=== PATIENT | female | born 1975 | race Caucasian/White ===

== ENCOUNTER 2018-12-10 18:46 | Emergency (ER) | payer OTHER, MEDICAID ==
[~2018-12-10] VITALS: Ht 170.2 cm; Wt 82.7 kg
[2018-12-10 18:47] VITALS: BP 122/58
[2018-12-10] MEDS ORDERED: SING10TA32 PO (19:48)
[2018-12-10] MEDS ORDERED: VITATAB11 PO (19:48)
[2018-12-10] MEDS ORDERED: NAPR250T4 PO (19:48)
[2018-12-10] MEDS ORDERED: VITA-121 PO (19:48)
[2018-12-10] MEDS ORDERED: MAGN200T PO (19:48)
[2018-12-10] MEDS ORDERED: VITA1OIL PO (19:48)
[2018-12-10] MEDS ORDERED: MIDO5TA PO (19:48)
[2018-12-10] MEDS ORDERED: CO Q10CA PO (19:48)
[2018-12-10] MEDS ORDERED: GABA-843 PO (19:48)
[2018-12-10] MEDS ORDERED: ALLE180T33 PO (19:48)
--- NOTE | 2018-12-11 06:04 | REP ---
AP PELVIS: 12/10/2018. Clinical history: Groin pain. Comparison: Right hip 12/10/2018. Findings. Pelvic ring is intact. Iliac bones and SI joints intact. Sacral ala and foramina unremarkable. There are some degenerative changes at the lumbosacral junction. Hip joint space is symmetric and preserved. Pubic rami symmetric and normal. No abnormal soft tissue calcifications. Impression: 1. Minor degenerative changes lumbosacral junction, but no disruption of the pelvic ring, fracture, SI joint or hip abnormality. Electronically Signed by Nicola Yu MD 12/11/2018 08:53 A
--- NOTE | 2018-12-11 06:05 | REP ---
RIGHT HIP: 12/10/2018. Clinical history: Right groin pain. Comparison: AP pelvis today. Findings: AP and frog-leg views show the hip joint space symmetric and preserved. There is no fracture, AVN or focal bone lesion of the bony hip. Acetabulum is unremarkable. Pubic rami, symphysis pubis and proximal femoral shaft intact. No abnormal calcifications. Visualized sacral ala and foramina intact. Impression: 1. Negative right hip series. Electronically Signed by Nicola Yu MD 12/11/2018 08:54 A
== END 2018-12-10 21:10 | disposition home or self-care (01) ==
LOC: M ED 18:46
DX: S73.101A Unspecified sprain of right hip, initial encounter (principal); S70.01XA Contusion of right hip, initial encounter; W19.XXXA Unspecified fall, initial encounter; Y92.89 Other specified places as the place of occurrence of the external cause; Y99.0 Civilian activity done for income or pay; M35.9 Systemic involvement of connective tissue, unspecified; G62.9 Polyneuropathy, unspecified; Z79.899 Other long term (current) drug therapy; Z79.1 Long term (current) use of non-steroidal anti-inflammatories (NSAID)

== ENCOUNTER → 2019-01-10 | Outpatient (CLI) | payer OTHER, MEDICAID ==
[~2019-01-10] MED LIST: ALLE180T33 PO; CO Q10CA PO; GABA-843 PO; MAGN200T PO; MIDO5TA PO; NAPR250T4 PO; SING10TA32 PO; VITA-121 PO; VITA1OIL PO; VITATAB11 PO
[2019-01-10 07:28] LABS: HEMATOCRIT 41.4 % (36.0-47.0); HEMOGLOBIN 13.4 g/dl (12.0-15.5); LYMPH % 37.4 % (24.0-44.0); MEAN CORPUSCULAR HEMOGLOBIN 29.8 pg (27.0-33.0); MEAN CORPUSCULAR HGB CONC 32.4 g/dl (32.0-36.5); MONO # 0.5 10^3/uL (0.0-0.8); MONO % 9.8 % (0.0-5.0); NEUTROPHILS # 2.8 10^3/uL (1.8-7.7); NEUTROPHILS % 52.6 % (36.0-66.0); PLATELET COUNT, AUTOMATED 352 10^3/uL (150-450); WHITE BLOOD COUNT 5.2 10^3/uL (4.0-10.0)
[2019-01-10 08:03] LABS: ALBUMIN 4.1 GM/DL (3.2-5.2); ALT/SGPT 43 U/L (12-78); BILIRUBIN,TOTAL 0.4 MG/DL (0.2-1.0); BLOOD UREA NITROGEN 18 MG/DL (7-18); CALCIUM LEVEL 9.1 MG/DL (8.5-10.1); CARBON DIOXIDE LEVEL 29 MEQ/L (21-32); CHLORIDE LEVEL 106 MEQ/L (98-107); CREATININE FOR GFR 0.76 MG/DL (0.55-1.30); FREE T4 1.23 NG/DL (0.76-1.46); GLOMERULAR FILTRATION RATE > 60.0 (>58); GLUCOSE, FASTING 88 MG/DL (70-100); POTASSIUM SERUM 4.7 MEQ/L (3.5-5.1); SODIUM LEVEL 140 MEQ/L (136-145); THYROID STIMULATING HORMONE 0.807 uIU/ML (0.358-3.740); TOTAL PROTEIN 6.3 GM/DL (6.4-8.2)
[2019-01-10 10:17] LABS: FOLATE 11.9 NG/ML; TOTAL 25(OH) VITAMIN D 27.8 NG/ML (30.0-100.0); VITAMIN B12 LEVEL 471 PG/ML
== END ==
LOC: M LAB 06:55
PROVIDERS: ATTEND Family Medicine
DX: I27.20 Pulmonary hypertension, unspecified (principal); G99.0 Autonomic neuropathy in diseases classified elsewhere

== ENCOUNTER → 2019-01-16 | Outpatient (CLI) | payer OTHER, MEDICAID ==
--- NOTE | 2019-01-21 14:52 | DEXA ---
AP SPINE L1 - L4 1.081 -0.9 -0.9 LT FEMUR TOTAL 0.902 -0.8 -0.6 LT NECK 0.833 -1.5 -0.9 RT FEMUR TOTAL 0.937 -0.6 -0.3 RT NECK 0.853 -1.3 -0.8 TOTAL BODY TOTAL OTHER COMMENTS: Normal bone densitometry of the spine. There is low bone density of the left hip. There is low bone density of the right hip. FOLLOW-UP: Recommendation for the next bone density exam: 2 years. TOMER
== END ==
LOC: M WHC 14:29
PROVIDERS: ATTEND Orthopaedic Surgery
DX: M85.88 Other specified disorders of bone density and structure, other site (principal)

== ENCOUNTER → 2019-04-28 | Outpatient (REF) | payer OTHER, MEDICAID ==
[2019-05-02 15:46] LABS: HPV HYBRID CAPTURE II Negative (Negative)
== END ==
LOC: M LAB REF 10:47
PROVIDERS: ATTEND Specialist
DX: Z12.4 Encounter for screening for malignant neoplasm of cervix (principal)

== ENCOUNTER → 2019-08-23 | Outpatient (CLI) | payer OTHER | LOC: M LAB 08:44 | PROVIDERS: ATTEND Internal Medicine Endocrinology, Diabetes & Metabolism | DX: M89.9 Disorder of bone, unspecified (principal); M94.9 Disorder of cartilage, unspecified ==

== ENCOUNTER → 2019-12-17 | Outpatient (REF) | payer OTHER | LOC: M LAB REF 16:52 | PROVIDERS: ATTEND Physician Assistant | DX: N39.0 Urinary tract infection, site not specified (principal) ==

== ENCOUNTER → 2020-01-13 | Outpatient (CLI) | payer OTHER ==
[2020-01-13 12:28] LABS: BASO # 0.1 10^3/uL (0.0-0.2); BASO % 1.7 % (0.0-1.0); EOS # 0.3 10^3/uL (0.0-0.5); EOS % 4.7 % (0.0-3.0); HEMATOCRIT 45.6 % (36.0-47.0); HEMOGLOBIN 14.8 g/dl (12.0-15.5); LYMPH # 2.1 10^3/uL (1.5-5.0); LYMPH % 35.8 % (24.0-44.0); MEAN CORPUSCULAR HEMOGLOBIN 29.5 pg (27.0-33.0); MEAN CORPUSCULAR HGB CONC 32.5 g/dl (32.0-36.5); MEAN CORPUSCULAR VOLUME 90.8 fl (80.0-96.0); MONO # 0.6 10^3/uL (0.0-0.8); NEUTROPHILS # 2.8 10^3/uL (1.5-8.5); NEUTROPHILS % 47.6 % (36.0-66.0); PLATELET COUNT, AUTOMATED 375 10^3/uL (150-450); RED BLOOD COUNT 5.02 10^6/uL (4.00-5.40); WHITE BLOOD COUNT 5.9 10^3/uL (4.0-10.0)
[2020-01-13 12:38] LABS: COLLAGEN EPINEPHRINE 132 SECONDS (74-162)
[2020-01-13 13:14] LABS: FOLATE 19.4 NG/ML
[2020-01-13 13:36] LABS: PERCENT SATURATION 17.8 % (13.2-45.0)
== END ==
LOC: M PLALAB 10:12
PROVIDERS: ATTEND Family Medicine
DX: R23.3 Spontaneous ecchymoses (principal)

== ENCOUNTER → 2020-01-20 | Outpatient (CLI) | payer OTHER ==
--- NOTE | 2020-01-20 07:57 | REP ---
Abdominal aorta ultrasound: Abdominal Aortic Measurements are as follows: Proximal one point a cm AP 2.1 cm TRV Renal Artery Level 1.4 cm AP 2.0 cm TRV Mid Aorta 1.4 cm AP 1.8 cm TRV Distal Aorta 1.2 cm AP 1.8 cm TRV R Iliac Artery 0.9 cm AP 1.2 cm TRV L Iliac Artery 0.8 cm AP 1.1. cm TRV Impression There is no abdominal aortic aneurysm. Electronically Signed by Joseph Morelos MD 01/20/2020 07:48 A
== END ==
LOC: M RAD 07:14
PROVIDERS: ATTEND Internal Medicine Cardiovascular Disease
DX: Z13.6 Encounter for screening for cardiovascular disorders (principal)

== ENCOUNTER → 2020-03-10 | Outpatient (REF) | payer OTHER ==
[2020-03-10 14:21] LABS: BASO # 0.1 10^3/uL (0.0-0.2); BASO % 1.6 % (0.0-1.0); EOS # 0.2 10^3/uL (0.0-0.5); EOS % 3.6 % (0.0-3.0); HEMATOCRIT 44.7 % (36.0-47.0); HEMOGLOBIN 14.4 g/dl (12.0-15.5); LYMPH # 1.9 10^3/uL (1.5-5.0); LYMPH % 38.3 % (24.0-44.0); MEAN CORPUSCULAR HEMOGLOBIN 29.3 pg (27.0-33.0); MEAN CORPUSCULAR HGB CONC 32.2 g/dl (32.0-36.5); MONO # 0.4 10^3/uL (0.0-0.8); MONO % 7.1 % (0.0-5.0); NEUTROPHILS # 2.5 10^3/uL (1.5-8.5); NEUTROPHILS % 49.2 % (36.0-66.0); PLATELET COUNT, AUTOMATED 385 10^3/uL (150-450); RED BLOOD COUNT 4.91 10^6/uL (4.00-5.40); WHITE BLOOD COUNT 5.1 10^3/uL (4.0-10.0)
[2020-03-10 14:25] LABS: ALBUMIN 3.9 GM/DL (3.2-5.2); ALT/SGPT 50 U/L (12-78); BILIRUBIN,TOTAL 0.5 MG/DL (0.2-1.0); BLOOD UREA NITROGEN 13 MG/DL (7-18); C REACTIVE PROTEIN QUANTITATIV < 0.30 MG/DL (0.00-0.30); CALCIUM LEVEL 9.2 MG/DL (8.5-10.1); CARBON DIOXIDE LEVEL 29 MEQ/L (21-32); CHLORIDE LEVEL 108 MEQ/L (98-107); CREATININE FOR GFR 0.79 MG/DL (0.55-1.30); FERRITIN 56 NG/ML (8-252); FREE T3 2.6 PG/ML (2.2-4.0); FREE T4 1.03 NG/DL (0.76-1.46); GLOMERULAR FILTRATION RATE > 60.0 (>58); GLUCOSE, FASTING 83 MG/DL (70-100); POTASSIUM SERUM 4.6 MEQ/L (3.5-5.1); PROGESTERONE 0.21 NG/ML; SODIUM LEVEL 141 MEQ/L (136-145); THYROID STIMULATING HORMONE 0.706 uIU/ML (0.358-3.740); TOTAL PROTEIN 6.9 GM/DL (6.4-8.2)
== END ==
LOC: M LABDRAW1 13:02
DX: I27.0 Primary pulmonary hypertension (principal); K59.00 Constipation, unspecified; N95.9 Unspecified menopausal and perimenopausal disorder; E56.9 Vitamin deficiency, unspecified; Z13.6 Encounter for screening for cardiovascular disorders

== ENCOUNTER → 2020-10-02 | Outpatient (CLI) | payer OTHER ==
[2020-10-02 13:30] LABS: CHOLESTEROL RISK RATIO 3.291 (<5)
[2020-10-04 09:54] LABS: TOTAL 25(OH) VITAMIN D 69.4 NG/ML (30.0-100.0)
== END ==
LOC: M WUC 08:13
PROVIDERS: ATTEND Family Medicine
DX: E55.9 Vitamin D deficiency, unspecified (principal); Z13.220 Encounter for screening for lipoid disorders

== ENCOUNTER → 2021-03-28 | Outpatient (REF) | payer OTHER ==
[~2021-03-28] MED LIST changes: +GABA-282 PO; -GABA-843 PO; +NAPR-849 PO; -NAPR250T4 PO
== END ==
LOC: M LAB REF 16:55
PROVIDERS: ATTEND Family Medicine
DX: N39.0 Urinary tract infection, site not specified (principal)

== ENCOUNTER → 2021-04-27 | Outpatient (CLI) | payer OTHER ==
--- NOTE | 2021-04-27 11:20 | REPPI ---
INDICATION: NECK PAIN WITH HEADACHES COMPARISON: None. TECHNIQUE: AP, lateral, flexion/extension, bilateral oblique, swimmer's and open-mouth views. FINDINGS: Alignment and lordosis maintained. Moderate to early advanced multilevel degenerative changes include endplate sclerosis, disc space narrowing, and spurring primarily involving C4-5, C5-6, C6-7. No acute fracture/compression injury or subluxation. C1-C2 articulation and odontoid process are intact. IMPRESSION: Moderate multilevel degenerative changes. <Electronically signed by Jessee Bonilla > 04/27/21 [id number]
== END ==
LOC: M PLAIMG 10:55
PROVIDERS: ATTEND Chiropractor
DX: M54.2 Cervicalgia (principal); R51.9 Headache, unspecified; M50.321 Other cervical disc degeneration at C4-C5 level; M50.322 Other cervical disc degeneration at C5-C6 level; M50.323 Other cervical disc degeneration at C6-C7 level

== ENCOUNTER → 2021-05-20 | Outpatient (CLI) | payer OTHER ==
--- NOTE | 2021-05-20 17:49 | REPVR ---
PROCEDURE INFORMATION: Exam: MR Cervical Spine Without Contrast Exam date and time: 05/20/2021 4:35 PM Age: 45 years old Clinical indication: Condition or disease; Disc degeneration; Vertebra area not specified; Additional info: Cervical disc syndrome TECHNIQUE: Imaging protocol: Multiplanar magnetic resonance images of the cervical spine without contrast. COMPARISON: CR SPINE CERVICAL COMPLETE 04/27/2021 11:12 AM FINDINGS: Cervical vertebral body heights are intact. Slight straightening of the cervical lordosis. The dens is intact. No abnormal marrow signal. No cord compression, expansion, or abnormal cord signal. Visualized structures of the posterior fossa are unremarkable. Soft tissues are unremarkable. C2-C3: No significant canal or foraminal narrowing. C3-C4: Slight posterior disc protrusion causing mild canal narrowing. No significant foraminal narrowing. C4-C5: Posterior disc protrusion and uncovertebral spurring cause mild canal narrowing and mild bilateral foraminal narrowing. C5-C6: Posterior disc protrusion and uncovertebral spurring cause mild canal narrowing with mild right and moderate to severe left foraminal narrowing. C6-C7: Posterior disc protrusion and uncovertebral spurring cause mild canal narrowing and moderate bilateral foraminal narrowing. C7-T1: No significant canal or foraminal narrowing. IMPRESSION: Multilevel spondylotic changes of the cervical spine, as detailed above. Electronically signed by: Jairo Clifford On 05/20/2021 17:48:48 PM
== END ==
LOC: M PLARAD 15:30
PROVIDERS: ATTEND Chiropractor
DX: M50.21 Other cervical disc displacement, high cervical region (principal); M50.221 Other cervical disc displacement at C4-C5 level; M50.222 Other cervical disc displacement at C5-C6 level; M50.223 Other cervical disc displacement at C6-C7 level; M47.812 Spondylosis without myelopathy or radiculopathy, cervical region

== ENCOUNTER → 2021-06-14 | Outpatient (REF) | payer OTHER | LOC: M LAB REF 18:02 | PROVIDERS: ATTEND Nurse Practitioner Family | DX: R10.13 Epigastric pain (principal); K21.9 Gastro-esophageal reflux disease without esophagitis ==

== ENCOUNTER → 2021-09-09 | Outpatient (CLI) | payer OTHER ==
--- NOTE | 2021-09-12 16:47 | REPVR ---
PROCEDURE INFORMATION: Exam: CT Temporal Bones Without Contrast. Exam date and time: 09/09/2021 8:50 AM Age: 45 years old Clinical indication: Pain; Other: Left ear; Additional info: Otalgia lt ear TECHNIQUE: Imaging protocol: Computed tomography images of the temporal bones without contrast. Radiation optimization: All CT scans at this facility use at least one of these dose optimization techniques: automated exposure control; mA and/or kV adjustment per patient size (includes targeted exams where dose is matched to clinical indication); or iterative reconstruction. COMPARISON: CT IACs W/O CONTRAST - OUTSIDE PRIOR 02/04/2018 3:31 PM FINDINGS: Right inner ear: Normal. Right ossicles and middle ear: Normal. The middle ear ossicles are intact. Right external auditory canal: Normal. Right facial nerve canal: Normal. Right jugular foramen: No jugular dehiscence. Right carotid canal: No aberrant carotid canal. Right mastoid air cells: Normal. No mastoid effusions. Left inner ear: Normal. Left ossicles and middle ear: Normal. The middle ear ossicles are intact. Left external auditory canal: Normal. Left facial nerve canal: Normal. Left jugular foramen: No jugular dehiscence. Left carotid canal: No aberrant carotid canal. Left mastoid air cells: Normal. No mastoid effusions. Soft tissues: Unremarkable. IMPRESSION: No acute findings. Electronically signed by: Gera Rajput On 09/12/2021 16:46:49 PM
== END ==
LOC: M PLAIMG 08:25
PROVIDERS: ATTEND Family Medicine
DX: H92.02 Otalgia, left ear (principal); G50.0 Trigeminal neuralgia

== ENCOUNTER → 2022-12-01 | Outpatient (CLI) | payer OTHER | LOC: M PLARAD 07:47 → M PLAIMG 09:27 → M PLARAD 09:27 | PROVIDERS: ATTEND Family Medicine | DX: S00.31XA Abrasion of nose, initial encounter (principal); X58.XXXA Exposure to other specified factors, initial encounter; Y92.9 Unspecified place or not applicable; Y93.9 Activity, unspecified; Y99.9 Unspecified external cause status ==

== ENCOUNTER → 2022-12-01 | Outpatient (CLI) | payer OTHER | LOC: M WHC 07:05 | PROVIDERS: ATTEND Family Medicine | DX: Z12.31 Encounter for screening mammogram for malignant neoplasm of breast (principal) ==

== ENCOUNTER → 2023-03-20 | Outpatient (CLI) | payer OTHER ==
[~2023-03-20] MED LIST changes: +MONT-5 PO; -SING10TA32 PO
== END ==
LOC: M PLAIMG 16:22
PROVIDERS: ATTEND Surgery
DX: M54.2 Cervicalgia (principal)

== ENCOUNTER → 2024-05-06 | Outpatient (CLI) | payer OTHER | LOC: M RAD 07:26 | PROVIDERS: ATTEND Internal Medicine Gastroenterology | DX: R10.13 Epigastric pain (principal); R68.81 Early satiety; K31.89 Other diseases of stomach and duodenum | CPT/HCPCS: 78264; A9541 ==

== ENCOUNTER → 2024-12-25 | Outpatient (CLI) | payer OTHER ==
[~2024-12-25] MED LIST changes: +GABA-1172 PO; -GABA-282 PO
== END ==
LOC: M WHC 15:37
PROVIDERS: ATTEND Family Medicine
DX: Z12.31 Encounter for screening mammogram for malignant neoplasm of breast (principal); R92.323 Mammographic fibroglandular density, bilateral breasts

== ENCOUNTER → 2025-06-11 | Outpatient (CLI) | payer OTHER | LOC: M PLAIMG 10:03 | PROVIDERS: ATTEND Family Medicine | DX: S93.401A Sprain of unspecified ligament of right ankle, initial encounter (principal); Y93.9 Activity, unspecified; Y92.9 Unspecified place or not applicable ==

== ENCOUNTER → 2025-06-22 | Outpatient (CLI) | payer OTHER | LOC: M SOG 08:04 | PROVIDERS: ATTEND Physician Assistant | DX: Z53.9 Procedure and treatment not carried out, unspecified reason (principal) ==